=== PATIENT | female | born 1960 | race Caucasian/White ===

== ENCOUNTER 2017-06-12 20:52 | Emergency (ER) | payer SELFPAY ==
[~2017-06-12] VITALS: Ht 157.5 cm; Wt 52.0 kg
[~2017-06-12 20:52] MED LIST: COMBAER INH; DILA100C PO
[2017-06-12 21:34] VITALS: BP 109/67; PULSE 71; RESP 17; TEMP 98.5; O2SAT 96
--- NOTE | 2017-06-12 21:54 | PD ---
HPI Chief Complaint: Pain: Acute or Chronic Time Seen by Provider: 21:42 Travel History International Travel<30 days: No Contact w/Intl Traveler<30days: No Traveled to known affect area: No History of Present Illness HPI Patient is a 57-year-old female presents emergency department for evaluation of left foot pain. Patient states she was sitting in a chair and try to move it and when she tried to move it it fell over and landed on her foot. She states it hit hard enough she thinks it is broken. She denies any other injuries. States pain started just prior to arrival, she has been able to walk on it, no chest pain shortness of breath knee pain hip pain back pain or ankle pain. Pain moderate, left foot, context and associated signs and symptoms as above PFSH Past Medical History Asthma: Yes (SMOKING RELATED) Anxiety: No Depression: No Cancer: No (Unknown) Cardiovascular Problems: Yes COPD: Yes Cerebrovascular Accident: Yes Diabetes: No Patient Takes Glucophage: No Diminished Hearing: No Endocrine: Yes Gastrointestinal Disorders: No Genitourinary: No Headaches: Yes (sinus) Hypertension: Yes (SITUATIONAL) Immune Disorder: No Implanted Vascular Access Dvce: No Musculoskeletal: No Neurologic: Yes Psychiatric: No Reproductive: No Respiratory: No Immunizations Current: Yes Migraines: Yes Seizures: Yes Sickle Cell Disease: No Tetanus Vaccination: > 5 Years Influenza Vaccination: No ?: Not : 5 Para: 4 Miscarriage: 1 Tubal Ligation: Yes Past Surgical History Neurologic Surgery: No Other Surgery: Yes (RIGHT WRIST SX) Social History Alcohol Use: Yes (BEER DAILY) Tobacco Use: Yes (1/2 PPD) Substance Use: No Allergies-Medications (Allergen,Severity, Reaction): Coded Allergies: codeine (Unverified Allergy, Severe, "I ", 06/12/17) Reported Meds & Prescriptions Reported Meds & Active Scripts Active No Active Prescriptions or Reported Medications Review of Systems Except as stated in HPI: all other systems reviewed are Neg Physical Exam Narrative GENERAL: Well-nourished, well-developed patient. SKIN: Focused skin assessment warm/dry. HEAD: Normocephalic. EYES: No scleral icterus. No injection or drainage. NECK: Supple, trachea midline. No JVD or lymphadenopathy. CARDIOVASCULAR: Regular rate and rhythm without murmurs, gallops, or rubs. RESPIRATORY: Breath sounds equal bilaterally. No accessory muscle use. GASTROINTESTINAL: Abdomen soft, non-tender, nondistended. MUSCULOSKELETAL: There is minimal bruising about the dorsum of the left foot over the second and third metatarsal. Pulse motor and sensory intact over the dorsalis pedis and posterior tibial. Cap refill is brisk, she is full nontender range of motion of all the toes, she is able to ambulate, no tenderness at the malleoli bilaterally. Right foot is atraumatic. Knees are atraumatic. No midline CT or L-spine tenderness. Compartments are soft BACK: Nontender without obvious deformity. No CVA tenderness. Data Data Last Documented VS Orders Orders Foot, Complete ([id number]) (06/12/17 ) Ed Discharge Order (06/12/17 22:38) [facility] Medical Decision Making Medical Screen Exam Complete: Yes Emergency Medical Condition: Yes Differential Diagnosis Foot contusion, foot fracture, foot sprain, foot sprain peer Narrative Course Patient room to the emergency department, x-ray reassuring, discussed Intermedic management return to ED criteria follow-up with primary care physician Last 24 hours Impressions Foot X-Ray 06/12/17 0000 Signed Impressions: Service Date/Time: Monday, June 12, 2017 22:07 - CONCLUSION: No acute abnormalities are demonstrated. Chronic findings as above. Jesus Givens MD Incidentally the patient was noted to have a large irregular mass on the left side of her face which is consistent with an advancing basal cell carcinoma. I highly recommended to her that she follow-up with a continuous improvement manager as well as primary care physician for biopsy. She verbalized understanding and agreement. I discussed that there is risk that it could continue to spread including spread into her bony tissue or face or even brain. She verbalized understanding to this as well, she will follow-up with the [facility] Diagnosis Primary Impression: Foot contusion Scripts No Active Prescriptions or Reported Meds Disposition: DISCHARGE HOME Condition: Stable Surinder Lozada MD Jun 12, 2017 21:54
--- NOTE | 2017-06-12 22:26 | RADRPT ---
EXAM DATE/TIME: 06/12/2017 22:07 [facility] COMPARISON: No previous studies available for comparison. INDICATIONS : Pain. MEDICAL HISTORY : Chronic obstructive pulmonary disease. Emphysema. SURGICAL HISTORY : None. ENCOUNTER: Initial ACUITY: 1 day PAIN SCORE: 8/10 LOCATION: Left Foot. FINDINGS: No acute fracture or subluxation is demonstrated of the left foot. Patient has old, healed mid to distal shaft fractures of the second, third and fourth metatarsals. Slight hallux valgus. Very mild Lisfranc degenerative changes. No erosions are seen. Radiographic nishant earance of the soft tissues within normal limits. CONCLUSION: No acute abnormalities are demonstrated. Chronic findings as above. Jesus Givens MD on June 12, 2017 at 22:23 Board Certified Radiologist. This report was verified electronically.
== END 2017-06-12 23:16 | disposition home or self-care (01) ==
LOC: NEPD 20:52
DX: S90.30XA Contusion of unspecified foot, initial encounter (principal); X58.XXXA Exposure to other specified factors, initial encounter
CPT/HCPCS: 73630; 99283